=== PATIENT | female | born 1955 | race Caucasian/White ===

== ENCOUNTER 2021-11-28 20:36 | Outpatient (CLI) | payer MEDICARE, MEDICAID | END 2021-11-28 23:59 | disposition critical access hospital (66) | LOC: EMS 20:36 | DX: R06.02 Shortness of breath (principal); R06.2 Wheezing | CPT/HCPCS: A0425; A0427 ==

== ENCOUNTER 2021-11-28 20:55 | Inpatient (IN) | payer MEDICARE, MEDICAID ==
[2021-11-28] MEDS ORDERED: IPRATROPIUM/ALBUTEROL 3 ML NEB INH STA (21:02)
[2021-11-28] MEDS ORDERED: ALBUTEROL NEB 2.5 MG/3 ML INH STA ×2 (21:03→22:15)
[2021-11-28 21:13] LABS: BASOPHILS % (AUTO) 0.4 %; HCT - HEMATOCRIT 47.6 % (37.0-47.0); HGB - HEMOGLOBIN 15.3 g/dL (12.0-16.0); LYMPHOCYTES # (AUTO) 1.7 10^3/uL (1.5-3.5); LYMPHOCYTES % (AUTO) 16.3 %; MEAN CORPUSCULAR HEMOGLOBIN 29.9 pg (27.0-31.0); MEAN CORPUSCULAR HGB CONC 32.1 g/dL (32.0-36.0); MEAN CORPUSCULAR VOLUME 93.2 fL (81.0-99.0); MEAN PLATELET VOLUME 9.8 fL (7.9-10.8); MONOCYTES # (AUTO) 1.4 10^3/uL (0.0-1.0); MONOCYTES % (AUTO) 13.4 %; NEUTROPHILS % (AUTO) 69.6 %; PLT - PLATELET COUNT 226 10^3/uL (130-450); RED BLOOD COUNT 5.11 10^6/uL (4.20-5.40); RED CELL DISTRIBUTION WIDTH 14.3 % (12.0-15.0); WHITE BLOOD COUNT 10.1 x10^3/uL (4.8-10.8)
[2021-11-28 21:28] LABS: ALBUMIN/GLOBULIN RATIO 1.3 (1.0-2.2); BILIRUBIN,TOTAL 0.9 mg/dL (0.2-1.0); CALCIUM 8.7 mg/dL (8.5-10.3); CREATININE 0.6 mg/dL (0.4-1.0); POTASSIUM 3.6 mmol/L (3.5-5.0)
--- NOTE | 2021-11-28 21:36 | ED Physician Documentation ---
PD HPI DYSPNEA - Stated complaint Stated Complaint: SOA - Chief complaint Chief Complaint: Resp - History obtained from History obtained from: Patient - Additional information Additional information: Patient is a 66-year-old female with a history of COPD with shortness of breath since Saturday. Patient recently moved to a new house and when she turned on the heat of there was a lot of dust. She has been having more trouble breathing since being in the new home.She has a home nebulizer which she has been using without any improvement. Her breathing became worse tonight and she activated EMS. On upon EMS arrival, her room air oxygen saturations were 90%. She received 1 DuoNeb and 125 mg of IV Solu-Medrol.Patient reports having a chronic cough with no significant change in sputum production or color. She reports the sputum is clear with no blood. She does report having midsternal chest pain That feels like a tightness since Saturday which does not radiate, Worsens with cough.She denies fever, abdominal pain, vomiting or diarrhea, leg swelling. She has reported increased urination. Review of Systems Constitutional: denies: Fever Nose: denies: Congestion Cardiac: reports: Chest pain / pressure. denies: Palpitations Respiratory: reports: Dyspnea, Cough GI: denies: Abdominal Pain, Nausea, Vomiting : reports: Frequency. denies: Dysuria Musculoskeletal: denies: Back pain Neurologic: denies: Syncope PD PAST MEDICAL HISTORY - Past Medical History Past Medical History: Yes Respiratory: COPD - Past Surgical History Past Surgical History: Yes General: Appendectomy /[employer]LE [employer]RAKE [employer]ONDER: Hysterectomy - Present Medications Home Medications: Ambulatory Orders Medication Instructions Recorded Confirmed Albuterol Sulf [Ventolin Hfa 2 puffs INH PRN PRN 11/28/21 11/28/21 Inhaler] - Allergies Allergies/Adverse Reactions: Allergies Allergy/AdvReac Type Severity Reaction Status Date / Time No Known Drug Allergies Allergy Verified 11/28/21 21:02 - Social History Does the pt smoke?: Yes Smoking Status: Current every day smoker Does the pt drink ETOH?: No Does the pt have substance abuse?: No - Immunizations Immunizations are current?: No PD ED PE NORMAL - General General: Alert and oriented X 3, No acute distress, Well developed/nourished - HEENT HEENT: Atraumatic, Moist mucous membranes - Neck Neck: Supple, no meningeal sign - Cardiac Cardiac: No murmur, Strong equal pulses, Other (Tachycardic, regular rhythm) - Respiratory Respiratory: Other. No: No respiratory distress, Clear bilaterally (Mild tachypnea, diffuse wheezing) - Abdomen Abdomen: Normal bowel sounds, Soft, Non tender - Derm Derm: No rash - Extremities Extremities: No edema - Neuro Neuro: No motor deficit, Normal speech - Psych Psych: Normal mood Results - Vitals Vitals: Vital Signs - 24 hr 11/28/21 11/28/21 11/28/21 21:02 21:39 22:04 Temperature 36.7 C Heart Rate 113 H 110 H 110 H Respiratory 34 H 30 H 22 Rate Blood Pressure 156/85 H 156/71 H O2 Saturation 90 L 92 11/28/21 11/28/21 11/28/21 22:16 22:17 22:22 Temperature Heart Rate 106 H Respiratory 26 H 25 H 24 Rate Blood Pressure O2 Saturation 83 L 91 L Oxygen O2 Source Nasal cannula - EKG (time done) 2115 Rate: Rate (enter#) (106) Rhythm: Sinus tachycardia Ischemia: No: ST elevation c/w ischemia Compare to prior EKG: Old EKG unavailable - Labs Labs: Laboratory Tests 11/28/21 11/28/21 11/28/21 21:07 21:07 21:07 WBC 10.1 RBC 5.11 Hgb 15.3 Hct 47.6 H MCV 93.2 MCH 29.9 MCHC 32.1 RDW 14.3 Plt Count 226 MPV 9.8 Neut # (Auto) 7.0 H Lymph # (Auto) 1.7 Park # (Auto) 1.4 H Eos # (Auto) 0.0 Baso # (Auto) 0.0 Absolute Nucleated RBC 0.00 Nucleated RBC % 0.0 Sodium 136 Potassium 3.6 Chloride 102 Carbon Dioxide 25 Anion Gap 9.0 BUN 7 Creatinine 0.6 Estimated GFR (MDRD) 99 Glucose 121 H Calcium 8.7 Total Bilirubin 0.9 AST 21 ALT 24 Alkaline Phosphatase 78 Troponin I High Sens 9.2 B-Natriuretic Peptide Total Protein 7.0 Albumin 4.0 Globulin 3.0 Albumin/Globulin Ratio 1.3 Urine Color Urine Clarity Urine pH Ur Specific [place] Urine Protein Urine Glucose (UA) Urine Ketones Urine Occult Blood Urine Nitrite Urine Bilirubin Urine Urobilinogen Ur Leukocyte Esterase Ur Microscopic Review Urine Culture Comments SARS-CoV-2 (PCR) 11/28/21 11/28/21 11/28/21 21:07 21:19 21:54 WBC RBC Hgb Hct MCV MCH MCHC RDW Plt Count MPV Neut # (Auto) Lymph # (Auto) [place] # (Auto) Eos # (Auto) Baso # (Auto) Absolute Nucleated RBC Nucleated RBC % Sodium Potassium Chloride Carbon Dioxide Anion Gap BUN Creatinine Estimated GFR (MDRD) Glucose Calcium Total Bilirubin AST ALT Alkaline Phosphatase Troponin I High Sens B-Natriuretic Peptide 41 Total Protein Albumin Globulin Albumin/Globulin Ratio Urine Color DARK YELLOW Urine Clarity CLEAR Urine pH 5.5 Ur Specific [place] >=1.030 H Urine Protein TRACE Urine Glucose (UA) NEGATIVE Urine Ketones 40 H Urine Occult Blood TRACE-INTA Urine Nitrite NEGATIVE Urine Bilirubin NEGATIVE Urine Urobilinogen 0.2 (NORMAL) Ur Leukocyte Esterase NEGATIVE Ur Microscopic Review NOT INDICATED Urine Culture Comments NOT INDICATED SARS-CoV-2 (PCR) NOT DETECTED PD MEDICAL DECISION MAKING - ED course Complexity details: reviewed results, d/w patient ED course: Patient is a 66-year-old female presenting for evaluation of shortness of breath. Wheezing on exam. Has a history of COPD. Patient received multiple breathing treatments. IV Solu-Medrol given prior to arrival.Patient did desat requiring supplemental oxygen.She did have some clinical improvement and did not require BiPAP or intubation. Labs reviewed without significant abnormalities and sinus rhythm noted on EKG. Chest x-ray did not show clear consolidation.Patient to be admitted for COPD exacerbation. No lower extremity swelling to suggest DVT orKnown risk factors for pulmonary embolism. - Critical Care Time(min): 31 Departure - Departure Disposition: 66 [facility] DC/Xfer Clinical Impression: COPD with exacerbation, Acute respiratory failure with hypoxia Condition: Serious Discharge Date/Time: 11/28/21 23:55
--- NOTE | 2021-11-28 21:55 | XRAY Report ---
PROCEDURE: Chest 1 View X-Ray INDICATIONS: SOB TECHNIQUE: One view of the chest was acquired. COMPARISON: None. FINDINGS: Surgical changes and devices: None. Lungs and pleura: No pleural effusions or pneumothorax. There is pulmonary vascular prominence sugge stive of pulmonary edema. Mediastinum: Mediastinal contours appear normal. Heart size is normal. Bones and chest wall: No suspicious bony lesions. Overlying soft tissues appear unremarkable. IMPRESSION: 1. Pulmonary vascular prominence suggestive of pulmonary edema. Reviewed by: Christiano Torrez MD on 11/28/2021 9:54 PM PDT Approved by: Christiano Torrez MD on 11/28/2021 9:54 PM PDT Station ID: [id number]
[2021-11-28 22:05] LABS: GLUCOSE, URINE (UA) NEGATIVE (NEGATIVE); KETONES,URINE (UA) 40 mg/dL (NEGATIVE); LEUKOCYTE ESTERASE, URINE NEGATIVE (NEGATIVE); NITRITE,URINE NEGATIVE (NEGATIVE); OCCULT BLOOD,URINE TRACE-INTA (NEGATIVE); PH,URINE 5.5 PH (5.0-7.5); PROTEIN,URINE TRACE mg/dL (NEGATIVE); UROBILINOGEN,URINE 0.2 (NORMAL) E.U./dL (NORMAL)
[2021-11-28 22:06] LABS: CLARITY,URINE CLEAR (CLEAR)
[2021-11-28 22:10] LABS: BILIRUBIN,URINE NEGATIVE (NEGATIVE); ICTOTEST,URINE NEGATIVE
[2021-11-28] MEDS ORDERED: SODIUM CHLORIDE FLUSH 0.9% 10 ML SYRINGE IVP PRN (23:16)
[2021-11-28] MEDS ORDERED: ACETAMINOPHEN 325 MG TABLET PO PRN (23:16)
[2021-11-28] MEDS ORDERED: ONDANSETRON 4 MG/2 ML VIAL IVP PRN (23:16)
[2021-11-28] MEDS ORDERED: LEVALBUTEROL 1.25 MG/3 ML NEB INH PRN (23:35)
[2021-11-28] MEDS ORDERED: AZITHROMYCIN 250 MG TABLET PO STA (23:39)
--- NOTE | 2021-11-28 23:41 | HISTORY & PHYSICAL EXAMINATION ---
Chief Complaint - Chief Complaint Chief Complaint: SOB History of Present Illness - Admitted From Admitted From:: ED - History Obtained From History obtained from: ED provider and the patient - History of Present Illness HPI Comment/Other: This is a 66-year-old white female with a history of COPD on home inhaler and is S/P appendectomy and hysterectomy. She otherwise has no other past medical history and takes no other medications. She recently moved alone into a house on [facility] and over the past 4 days, since turning on the heater, has noticed increased dust in the house which has made her short of breath and wheeze. She is also more short of breath with activity such as unpacking her boxes. She describes a chronic cough with some sputum production which has been unchanged. There has been no fever or chest pain. She is a smoker of 1/2 PPD, but has only smoked 1 to 3 cigarettes per day, over the past 4 days, due to SOB. Due to worsening severe shortness of breath today, she called an ambulance. Her O2 saturation was 90% on room air at the scene. She received an Albuterol nebulizer treatment and IV Solu-Medrol 125 mg was given en route. In the ED, she was found to have a white count of 10.1, a negative COVID test, and she got 3 separate nebulizer treatments and despite that has felt no better and on room air has desaturated to 83%. She has been started on 2 L of oxygen supplemental now. The ED provider reached out to the Hospitalist team to have her admitted for further management of a COPD exacerbation. We discussed her CODE STATUS and she wants to be a DNR and DNI. She says "it's all in her Will". History - Past Medical History Cardiovascular: reports: None Respiratory: reports: COPD Neuro: reports: None Endocrine/Autoimmune: reports: None GI: reports: None HOSPITAL CORPSMAN: reports: None : reports: None HEENT: reports: None Psych: reports: None Musculoskeletal: reports: None Derm: reports: None MRSA Hx?: No - Past Surgical History General: reports: Appendectomy /HOSPITAL CORPSMAN: reports: Hysterectomy - Family & Social History Family History: Mother: , Father: Family History Comment/Other: Colon cancer runs in the family. She has 1 brother and 1 sister who are healthy. One brother in a car accident. She is 3 children who are healthy. Living arrangement: At home Living Situation: Alone Social History Notes: She lives alone. She smokes half pack per day. She has quit in the past, but " makes her resume smoking". When asked about who's , she started to cry and said "it is a long story" and would not disclose any details. There is no alcohol abuse history or drug use history. 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 - Substance History Use: Uses substance without health or social issues: Tobacco Meds/Allgy - Home Medications Home Medications: Ambulatory Orders Medication Instructions Recorded Confirmed Albuterol Sulf [Ventolin Hfa 2 puffs INH PRN PRN 11/28/21 11/28/21 Inhaler] - Allergies Allergies/Adverse Reactions: Allergies Allergy/AdvReac Type Severity Reaction Status Date / Time No Known Drug Allergies Allergy Verified 11/28/21 21:02 Review of Systems - Respiratory Respiratory: reports: Cough, Sputum production, Wheezing, SOB at rest, SOB with exertion - Integumentary Integumentary: reports: Rash (occais redness under L breast, not currently) - All Other Systems All Other Systems: reports: Reviewed and negative Exam - Vital Signs Reviewed Vital Signs: Yes Vital Signs: Vital Signs x48h Temp Pulse Resp BP Pulse Ox 11/28/21 22:22 106 H 24 11/28/21 22:17 25 H 91 L 11/28/21 22:16 26 H 83 L 11/28/21 22:04 110 H 22 156/71 H 92 11/28/21 21:39 110 H 30 H 11/28/21 21:02 36.7 C 113 H 34 H 156/85 H 90 L - Physical Exam General Appearance: positive: Alert, Mild distress (Tachypneic) Eyes Bilateral: positive: Normal inspection, EOMI ENT: positive: ENT inspection nml, No signs of dehydration, Other (Deep, harsh voice.) Neck: positive: Nml inspection, No JVD (but has obese neck) Respiratory: positive: Other (Scattered wheezes, prolonged expiratory phase, diminished breath sounds everywhere.) Cardiovascular: positive: Regular rate & rhythm (Distant heart sounds because of large pendulous breasts.) Abdomen: positive: Non-tender, No distention Skin: positive: No rash, Warm, Dry Extremities: positive: Non-tender, No pedal edema Neurologic/Psychiatric: positive: Oriented x3 (Non-focal) Conclusion/Plan - Problem List (1) Acute respiratory failure with hypoxia Conclusion/Plan: Patient has desaturated below 88% on room air, documented in the ED. She has been started on supplemental oxygen at 2 L per nasal cannula. Will treat the underlying problem, her COPD exacerbation. Will try to wean down the oxygen as tolerated keeping saturations equal to or greater than 88%. She will need an oximetry walk test on the day of discharge to see if she qualifies for home oxygen order. (2) COPD with exacerbation Conclusion/Plan: It appears that the dust that was kicked up in the house from turning on the heater has caused this COPD exacerbation. From her CBC showing polycythemia, she likely has been a longstanding COPDer, but labs show no CO2 retention, or bicarb elevation. Her chest x-ray shows no infiltrate, in fact it was read as having possible pulmonary edema but her BNP is entirely within normal limits. Will continue the patient on nebulized bronchodilators and nebulized steroids. Continue IV solumedrol 80 mg 3 times daily. Give an empiric Zithromax course of treatment, and give Florastor. Start Singulair at bedtime. Start Mucinex for pulmonary toilet Continue with supplemental oxygen as described above. Smoking cessation was discussed with the patient. (3) Tobacco use Conclusion/Plan: Smoking cessation would be very helpful for this patient with COPD. Nicotine patch will be ordered to use while here to decrease urges. - Lab Results Lab results reviewed: Yes Fish Bones: 11/28/21 21:07 11/28/21 21:07 - Diagnostic Imaging Results Diagnostic Imaging Results: positive: Final report reviewed - EKG Results EKG Interpreted Independently: Yes EKG Comparison: Old EKG unavailable EKG Findings: Sinus tachycardia, rate 106, otherwise WNL. No old EKG available for [facility]. - Other Other Results/Comments: Attestation: The patient is expected to be discharged or transferred to another facility within 96 hours: Yes.
[2021-11-29] MEDS: BUDESONIDE 0.5 MG/2 ML NEB INH SCH ×3 (00:44→19:27)
[2021-11-29] MEDS: DEXTROSE 5%-0.9% NACL 1,000 ML IV SCH ×2 (00:48→16:55)
[2021-11-29] MEDS: MONTELUKAST 10 MG TABLET PO SCH ×2 (00:49→20:59)
[2021-11-29] MEDS: SODIUM CHLORIDE FLUSH 0.9% 10 ML SYRINGE IVP SCH ×4 (00:49→23:57)
[2021-11-29] MEDS ORDERED: methylPREDNISolone SUCCINATE 40 MG/ML VIAL IVP SCH (06:00)
[2021-11-29] MEDS: LEVALBUTEROL 1.25 MG/3 ML NEB INH SCH ×4 (07:14→19:28)
[2021-11-29] MEDS: SACCHAROMYCES BOULARDII 250 MG CAPSULE PO SCH ×2 (07:42→17:10)
[2021-11-29 07:45] LABS: BASOPHILS % (AUTO) 0.2 %; HCT - HEMATOCRIT 45.6 % (37.0-47.0); HGB - HEMOGLOBIN 14.8 g/dL (12.0-16.0); LYMPHOCYTES # (AUTO) 0.8 10^3/uL (1.5-3.5); LYMPHOCYTES % (AUTO) 13.5 %; MEAN CORPUSCULAR HEMOGLOBIN 30.5 pg (27.0-31.0); MEAN CORPUSCULAR HGB CONC 32.5 g/dL (32.0-36.0); MEAN CORPUSCULAR VOLUME 93.8 fL (81.0-99.0); MEAN PLATELET VOLUME 9.8 fL (7.9-10.8); MONOCYTES # (AUTO) 0.2 10^3/uL (0.0-1.0); MONOCYTES % (AUTO) 2.6 %; NEUTROPHILS # (AUTO) 5.1 10^3/uL (1.5-6.6); NEUTROPHILS % (AUTO) 83.5 %; PLT - PLATELET COUNT 219 10^3/uL (130-450); RED BLOOD COUNT 4.86 10^6/uL (4.20-5.40); RED CELL DISTRIBUTION WIDTH 14.4 % (12.0-15.0); WHITE BLOOD COUNT 6.1 x10^3/uL (4.8-10.8)
[2021-11-29 07:59] LABS: CALCIUM 8.7 mg/dL (8.5-10.3); CREATININE 0.6 mg/dL (0.4-1.0)
[2021-11-29] MEDS: AZITHROMYCIN 250 MG TABLET PO SCH (08:29)
[2021-11-29] MEDS: NICOTINE 14 MG PATCH TOP SCH (08:29)
[2021-11-29] MEDS: guaiFENesin 600 MG TABLET PO SCH ×2 (08:29→20:59)
[2021-11-29] MEDS: ENOXAPARIN 40 MG/0.4 ML SYRINGE SUBQ SCH (08:29)
[2021-11-29] MEDS ORDERED: LORazepam 0.5 MG TABLET PO PRN (10:07)
--- NOTE | 2021-11-29 10:25 | PROVIDER PROGRESS NOTE ---
Assessment/Plan - Problem List (1) Acute respiratory failure with hypoxia Assessment/Plan: 11/29 pt still need 4 liter of O2 and has 96% Sats. which is likely caused by pt's COPD exacerbation and ongoing smoking. continue Solu-metrol, continue breathing INH treatment, continue supplement of O2 as needed. (2) COPD with exacerbation 11/29 we continue the patient on nebulized bronchodilators and nebulized steroids. , Continue IV solumedrol 80 mg 3 times daily. continue an empiric Zithromax course of treatment, and give Florastor. continue Mucinex for pulmonary toilet Continue with supplemental oxygen as described above. (3) Tobacco use we will discuss with pt, Smoking cessation would be very helpful for this patient with COPD, Nicotine patch will be ordered to use while here to decrease urges. - Current Meds Current Meds: Current Medications Generic Name Dose Route Start Last Admin Trade Name Freq PRN Reason Stop Dose Admin Azithromycin 250 mg 11/29/21 09:00 11/29/21 08:29 Azithromycin 250 Mg Tablet PO 12/03/21 00:01 250 mg DAILY LUKASZ Administration Budesonide 0.5 mg 11/28/21 23:34 11/29/21 07:13 Budesonide 0.5 Mg/2 Ml Neb INH 0.5 mg RTBID LUKASZ Administration Enoxaparin Sodium 40 mg 11/29/21 09:00 11/29/21 08:29 Enoxaparin 40 Mg/0.4 Ml Syringe SUBQ 40 mg DAILY LUKASZ Administration Guaifenesin 600 mg 11/29/21 09:00 11/29/21 08:29 Guaifenesin 600 Mg Tablet PO 600 mg BID LUKASZ Administration Dextrose/Sodium Chloride 1,000 mls @ 60 mls/hr 11/28/21 23:45 11/29/21 00:48 D5ns IV 60 mls/hr .[id number] LUKASZ Administration Levalbuterol HCl 1.25 mg 11/29/21 09:00 11/29/21 07:14 Levalbuterol 1.25 Mg/3 Ml Neb INH 1.25 mg QID LUKASZ Administration Montelukast Sodium 10 mg 11/28/21 23:37 11/29/21 00:49 Montelukast 10 Mg Tablet PO 10 mg QPM LUKASZ Administration Nicotine 1 patch 11/29/21 09:00 11/29/21 08:29 Nicotine 14 Mg Patch TOP 1 patch DAILY LUKASZ Administration Saccharomyces Boulardii 250 mg 11/29/21 08:00 11/29/21 07:42 Saccharomyces Boulardii 250 Mg Capsule PO 250 mg BIDWM LUKASZ Administration Sodium Chloride 10 ml 11/29/21 01:00 11/29/21 06:15 Sodium Chloride Flush 0.9% 10 Ml Syringe IVP 10 ml 0100,0900,1700 LUKASZ Administration - Lab Result Fish Bone Diagrams: 11/29/21 07:40 11/29/21 07:40 - Additional Planning My Orders: My Active Orders 11/29/21 07:33 Ipratropium [Atrovent] 0.5 mg INH RTQ6H 11/29/21 07:34 Nebulizer/MDI Tx. [RC] QID Resp Teach Nebulizer/MDI [RC] .ONCE 11/29/21 10:07 LORazepam [Ativan] 0.5 mg PO Q12H PRN 11/30/21 05:00 BMP - BASIC METABOLIC PANEL [CHEM] DAILYLAB CBC - COMP BLD CT W/AUTO DIFF [HEME] DAILYLAB 12/01/21 05:00 BMP - BASIC METABOLIC PANEL [CHEM] DAILYLAB CBC - COMP BLD CT W/AUTO DIFF [HEME] DAILYLAB 12/02/21 05:00 BMP - BASIC METABOLIC PANEL [CHEM] DAILYLAB CBC - COMP BLD CT W/AUTO DIFF [HEME] DAILYLAB 12/03/21 05:00 BMP - BASIC METABOLIC PANEL [CHEM] DAILYLAB CBC - COMP BLD CT W/AUTO DIFF [HEME] DAILYLAB 12/04/21 05:00 BMP - BASIC METABOLIC PANEL [CHEM] DAILYLAB CBC - COMP BLD CT W/AUTO DIFF [HEME] DAILYLAB Subjective - Subjective Patient Reports: Resting Comfortably Objective Vital Signs: Vital Signs - 24 hr 11/28/21 11/28/21 11/28/21 21:02 21:39 22:04 Temperature 36.7 C Heart Rate 113 H 110 H 110 H Heart Rate [ Brachial] Respiratory 34 H 30 H 22 Rate Blood Pressure 156/85 H 156/71 H Blood Pressure [Right Brachial artery] O2 Saturation 90 L 92 11/28/21 11/28/21 11/28/21 22:16 22:17 22:22 Temperature Heart Rate 106 H Heart Rate [ Brachial] Respiratory 26 H 25 H 24 Rate Blood Pressure Blood Pressure [Right Brachial artery] O2 Saturation 83 L 91 L 11/29/21 11/29/21 11/29/21 00:05 00:40 04:55 Temperature 37.3 C 37 C Heart Rate 76 Heart Rate [ 76 81 Brachial] Respiratory 28 H 22 24 Rate Blood Pressure Blood Pressure 120/99 H 109/46 L [Right Brachial artery] O2 Saturation 94 96 11/29/21 11/29/21 07:15 07:50 Temperature 37 C Heart Rate 78 Heart Rate [ 81 Brachial] Respiratory 20 24 Rate Blood Pressure Blood Pressure 115/52 L [Right Brachial artery] O2 Saturation 96 Oxygen O2 Source Nasal cannula I&O (Last 24 Hrs): Intake and Output Totals x24h 11/27/21 11/28/21 11/29/21 23:59 23:59 23:59 Intake Total 240 Output Total 30 Balance -30 240 General: Alert, Oriented x3, No acute distress HEENT: Atraumatic Neck: Supple Lymphatic: no adenopathy Neuro: Alert, Non Focal, Oriented Times 3 Cardiovascular: Regular rate, Normal S1, Normal S2 Respiratory: Chest non-tender, No respiratory distress Abdomen: Normal bowel sounds, Soft Extremities: Normal pulses - Results Results: Laboratory Results WBC 6.1 x10^3/uL (4.8-10.8) 11/29/21 07:40 RBC 4.86 10^6/uL (4.20-5.40) 11/29/21 07:40 Hgb 14.8 g/dL (12.0-16.0) 11/29/21 07:40 Hct 45.6 % (37.0-47.0) 11/29/21 07:40 MCV 93.8 fL (81.0-99.0) 11/29/21 07:40 MCH 30.5 pg (27.0-31.0) 11/29/21 07:40 MCHC 32.5 g/dL (32.0-36.0) 11/29/21 07:40 RDW 14.4 % (12.0-15.0) 11/29/21 07:40 Plt Count 219 10^3/uL (130-450) 11/29/21 07:40 MPV 9.8 fL (7.9-10.8) 11/29/21 07:40 Neut # (Auto) 5.1 10^3/uL (1.5-6.6) 11/29/21 07:40 Lymph # (Auto) 0.8 10^3/uL (1.5-3.5) L 11/29/21 07:40 [place] # (Auto) 0.2 10^3/uL (0.0-1.0) 11/29/21 07:40 Eos # (Auto) 0.0 10^3/uL (0.0-0.7) 11/29/21 07:40 Baso # (Auto) 0.0 10^3/uL (0.0-0.1) 11/29/21 07:40 Absolute Nucleated RBC 0.00 x10^3/uL 11/29/21 07:40 Nucleated RBC % 0.0 /100WBC 11/29/21 07:40 Sodium 135 mmol/L (135-145) 11/29/21 07:40 Potassium 4.0 mmol/L (3.5-5.0) 11/29/21 07:40 Chloride 102 mmol/L (101-111) 11/29/21 07:40 Carbon Dioxide 24 mmol/L (21-32) 11/29/21 07:40 Anion Gap 9.0 (6-13) 11/29/21 07:40 BUN 10 mg/dL (6-20) 11/29/21 07:40 Creatinine 0.6 mg/dL (0.4-1.0) 11/29/21 07:40 Estimated GFR (MDRD) 99 (>89) 11/29/21 07:40 Glucose 179 mg/dL (70-100) H 11/29/21 07:40 Calcium 8.7 mg/dL (8.5-10.3) 11/29/21 07:40 Total Bilirubin 0.9 mg/dL (0.2-1.0) 11/28/21 21:07 AST 21 IU/L (10-42) 11/28/21 21:07 ALT 24 IU/L (10-60) 11/28/21 21:07 Alkaline Phosphatase 78 IU/L (42-121) 11/28/21 21:07 Troponin I High Sens 9.2 ng/L (2.3-14.8) 11/28/21 21:07 B-Natriuretic Peptide 41 pg/mL (5-100) 11/28/21 21:07 Total Protein 7.0 g/dL (6.7-8.2) 11/28/21 21:07 Albumin 4.0 g/dL (3.2-5.5) 11/28/21 21:07 Globulin 3.0 g/dL (2.1-4.2) 11/28/21 21:07 Albumin/Globulin Ratio 1.3 (1.0-2.2) 11/28/21 21:07 Urine Color DARK YELLOW 11/28/21 21:54 Urine Clarity CLEAR (CLEAR) 11/28/21 21:54 Urine pH 5.5 PH (5.0-7.5) 11/28/21 21:54 Ur Specific [place] >=1.030 (1.002-1.030) H 11/28/21 21:54 Urine Protein TRACE mg/dL (NEGATIVE) 11/28/21 21:54 Urine Glucose (UA) NEGATIVE mg/dL (NEGATIVE) 11/28/21 21:54 Urine Ketones 40 mg/dL (NEGATIVE) H 11/28/21 21:54 Urine Occult Blood TRACE-INTA (NEGATIVE) 11/28/21 21:54 Urine Nitrite NEGATIVE (NEGATIVE) 11/28/21 21:54 Urine Bilirubin NEGATIVE (NEGATIVE) 11/28/21 21:54 Urine Urobilinogen 0.2 (NORMAL) E.U./dL (NORMAL) 11/28/21 21:54 Ur Leukocyte Esterase NEGATIVE (NEGATIVE) 11/28/21 21:54 Ur Microscopic Review NOT INDICATED 11/28/21 21:54 Urine Culture Comments NOT INDICATED 11/28/21 21:54 SARS-CoV-2 (PCR) NOT DETECTED 11/28/21 21:19 ABX Reporting Has patient been on IV antibiotics over the past 48 hours?: Yes Current Medications - Current Medications Current Medications: Active Medications Acetaminophen (Acetaminophen 325 Mg Tablet) 650 mg PO Q4HR PRN PRN Reason: Pain 1 to 4, or Fever Azithromycin (Azithromycin 250 Mg Tablet) 250 mg PO DAILY LUKASZ Stop: 12/03/21 00:01 Last Admin: 11/29/21 08:29 Dose: 250 mg Budesonide (Budesonide 0.5 Mg/2 Ml Neb) 0.5 mg INH RTBID LUKASZ Last Admin: 11/29/21 07:13 Dose: 0.5 mg Enoxaparin Sodium (Enoxaparin 40 Mg/0.4 Ml Syringe) 40 mg SUBQ DAILY [facility] Last Admin: 11/29/21 08:29 Dose: 40 mg Guaifenesin (Guaifenesin 600 Mg Tablet) 600 mg PO BID [facility] Last Admin: 11/29/21 08:29 Dose: 600 mg Dextrose/Sodium Chloride (D5ns) 1,000 mls @ 60 mls/hr IV .[id number] [facility] Last Admin: 11/29/21 00:48 Dose: 60 mls/hr Ipratropium Mcpherson (Ipratropium 0.2 Mg/Ml Neb) 0.5 mg INH RTQ6H [facility] Levalbuterol HCl (Levalbuterol 1.25 Mg/3 Ml Neb) 1.25 mg INH Q4H PRN PRN Reason: Shortness of Air/Wheezing Levalbuterol HCl (Levalbuterol 1.25 Mg/3 Ml Neb) 1.25 mg INH QID [facility] Last Admin: 11/29/21 07:14 Dose: 1.25 mg Lorazepam (Lorazepam 0.5 Mg Tablet) 0.5 mg PO Q12H PRN PRN Reason: Anxiety Methylprednisolone Sodium Succinate (Methylprednisolone Succinate 125 Mg/2 Ml Vial) 80 mg IVP TID [facility] Montelukast Sodium (Montelukast 10 Mg Tablet) 10 mg PO QPM [facility] Last Admin: 11/29/21 00:49 Dose: 10 mg Nicotine (Nicotine 14 Mg Patch) 1 patch TOP DAILY [facility] Last Admin: 11/29/21 08:29 Dose: 1 patch Ondansetron HCl (Ondansetron 4 Mg/2 Ml Vial) 4 mg IVP Q6HR PRN PRN Reason: Nausea / Vomiting Saccharomyces Boulardii (Saccharomyces Boulardii 250 Mg Capsule) 250 mg PO BIDWM [facility] Last Admin: 11/29/21 07:42 Dose: 250 mg Sodium Chloride (Sodium Chloride Flush 0.9% 10 Ml Syringe) 10 ml IVP PRN PRN PRN Reason: NEEDED PER PROVIDER ORDERS Sodium Chloride (Sodium Chloride Flush 0.9% 10 Ml Syringe) 10 ml IVP 0100,0900,1700 [facility] Last Admin: 11/29/21 06:15 Dose: 10 ml Albuterol Sulf [Ventolin Hfa Inhaler] 2 puffs INH PRN PRN 11/28/21
[2021-11-29] MEDS: IPRATROPIUM 0.2 MG/ML NEB INH SCH ×3 (11:49→19:27)
[2021-11-29] MEDS: methylPREDNISolone SUCCINATE 125 MG/2 ML VIAL IVP SCH ×2 (13:39→20:59)
[2021-11-30 05:51] LABS: BASOPHILS % (AUTO) 0.1 %; HGB - HEMOGLOBIN 13.7 g/dL (12.0-16.0); LYMPHOCYTES # (AUTO) 1.3 10^3/uL (1.5-3.5); LYMPHOCYTES % (AUTO) 7.9 %; MEAN CORPUSCULAR HGB CONC 31.9 g/dL (32.0-36.0); MEAN CORPUSCULAR VOLUME 94.3 fL (81.0-99.0); MEAN PLATELET VOLUME 10.5 fL (7.9-10.8); MONOCYTES # (AUTO) 0.6 10^3/uL (0.0-1.0); MONOCYTES % (AUTO) 3.7 %; NEUTROPHILS # (AUTO) 14.1 10^3/uL (1.5-6.6); NEUTROPHILS % (AUTO) 87.6 %; PLT - PLATELET COUNT 215 10^3/uL (130-450); RED BLOOD COUNT 4.56 10^6/uL (4.20-5.40); RED CELL DISTRIBUTION WIDTH 14.7 % (12.0-15.0)
[2021-11-30] MEDS: methylPREDNISolone SUCCINATE 125 MG/2 ML VIAL IVP SCH (05:57)
[2021-11-30 05:58] LABS: CALCIUM 8.7 mg/dL (8.5-10.3); CREATININE 0.6 mg/dL (0.4-1.0); POTASSIUM 4.5 mmol/L (3.5-5.0)
[2021-11-30] MEDS: IPRATROPIUM 0.2 MG/ML NEB INH SCH ×2 (05:58→07:41)
[2021-11-30] MEDS: SACCHAROMYCES BOULARDII 250 MG CAPSULE PO SCH (07:32)
[2021-11-30] MEDS: BUDESONIDE 0.5 MG/2 ML NEB INH SCH (07:38)
[2021-11-30] MEDS: LEVALBUTEROL 1.25 MG/3 ML NEB INH SCH ×2 (07:41→11:22)
[2021-11-30] MEDS: NICOTINE 14 MG PATCH TOP SCH (08:08)
[2021-11-30] MEDS: guaiFENesin 600 MG TABLET PO SCH (08:09)
[2021-11-30] MEDS: AZITHROMYCIN 250 MG TABLET PO SCH (08:09)
[2021-11-30] MEDS: SODIUM CHLORIDE FLUSH 0.9% 10 ML SYRINGE IVP SCH (08:09)
[2021-11-30] MEDS: ENOXAPARIN 40 MG/0.4 ML SYRINGE SUBQ SCH (08:09)
[2021-11-30] MEDS: DEXTROSE 5%-0.9% NACL 1,000 ML IV SCH (08:11)
[2021-11-30] MEDS ORDERED: IPRATROPIUM 0.2 MG/ML NEB INH SCH (09:00)
--- NOTE | 2021-11-30 10:49 | PHARMACY PROGRESS NOTE ---
- Best Possible Medication History Admit Date and Time: 11/28/21 1850 Processed by: Nursing Medication History completed: Yes Patient Interview: Completed As the person ultimately responsible for medication therapy, providers are able to order a medication from an existing home medication list in [facility] via the "Reconcile Routine" prior to Confirmation of that medication by windows desktop support. Such practice is discouraged except when the physician, in their clinical judg ment, deems that a medical need exists for a medication without regard to previous use.
[2021-11-30 11:02] VITALS: BP 125/56
--- NOTE | 2021-11-30 12:54 | Discharge Plan ---
Discharge Plan Problem Reviewed?: Yes Disposition: Home, Self Care Condition: Stable Prescriptions: Ipratropium [Atrovent] 1 puffs INH Q6H PRN #12.9 gm PRN Reason: Shortness Of Air/Wheezing predniSONE [Deltasone] 20 mg PO [id number] 5 Days #11 tab Azithromycin [Zithromax] 250 mg PO DAILY #4 tablet Diet: Regular Activity Restrictions: Activity as Tolerated Shower Restrictions: No (fall precaution ) Instruction Topics: COPD, COPD Inhalers, Prednisone tablets, Azithromycin tablets Health Concerns: COPD Plan of Treatment: After you were treated for your COPD, you have no respiratory distress. You are prescribed new Atrovent Inhaler, and taper down Prednisone, and four days of azithromycin. You may resume your home Albuterol inhaler as needed. Strongly advised that you may quit cigarette smoking. Care Goals: Stabilization and improvement of your medical conditions Assessment: Discussed the care plan with you, answered your questions, you understood Additional Instructions or Follow Up instructions: You may follow-up with your PCP In 1 to 2 weeks. should your symptoms return or worsen, You may present to the ER or call 911 for help. No Smoking: If you smoke, Please STOP! Call for help.
--- NOTE | 2021-11-30 13:04 | DISCHARGE SUMMARY ---
Discharge Summary Admit Date: 11/28/21 Discharge Date: 11/30/21 Discharging Provider: Christiano Lucas Condition at Discharge: Stable Discharge Disposition: 01 Home, Self Care Discharge Facility Name: home - DIAGNOSES Discharge Diagnoses with Status of Each Condition: (1) Acute respiratory failure with hypoxia resolved. pt has 93% sat on room air, she has no acute respiratory distress with comfortable breathing (2) COPD with exacerbation pt's acute exacerbation is resolved. pt has 93% sat on room air. pt is prescribed taper down dosage of Prednisone, and Atrovent inhaler, four days of Azithromycin. Pt may resume home albuterol inhaler. (3) Tobacco use strongly advise pt quit cigarette smoking. - HPI History of Present Illness: refer from Dr. Shayy Stafford's HPI on 11/28/21 This is a 66-year-old white female with a history of COPD on home inhaler and is S/P appendectomy and hysterectomy. She otherwise has no other past medical history and takes no other medications. She recently moved alone into a house on [address] and over the past 4 days, since turning on the heater, has noticed increased dust in the house which has made her short of breath and wheez e. She is also more short of breath with activity such as unpacking her boxes. She describes a chronic cough with some sputum production which has been unchanged. There has been no fever or chest pain. She is a smoker of 1/2 PPD, but has only smoked 1 to 3 cigarettes per day, over the past 4 days, due to SOB. Due to worsening severe shortness of breath today, she called an ambulance. Her O2 saturation was 90% on room air at the scene. She received an Albuterol nebulizer treatment and IV Solu-Medrol 125 mg was given en route. In the ED, she was found to have a white count of 10.1, a negative COVID test, and she got 3 separate nebulizer treatments and despite that has felt no better and on room air has desaturated to 83%. She has been started on 2 L of oxygen supplemental now. The ED provider reached out to the Hospitalist team to have her admitted for further management of a COPD exacerbation. We discussed her CODE STATUS and she wants to be a DNR and DNI. She says "it's all in her Will". - ALLERGIES Allergies/Adverse Reactions: Allergies Allergy/AdvReac Type Severity Reaction Status Date / Time No Known Drug Allergies Allergy Verified 11/28/21 21:02 - MEDICATIONS Home Medications: Ambulatory Orders Medication Instructions Recorded Confirmed Albuterol Sulf [Ventolin Hfa 2 puffs INH PRN PRN 11/28/21 11/28/21 Inhaler] Azithromycin [Zithromax] 250 mg PO DAILY #4 tablet 11/30/21 Ipratropium [Atrovent] 1 puffs INH Q6H PRN #12.9 gm 11/30/21 predniSONE [Deltasone] 20 mg PO [id number] 5 Days #11 tab 11/30/21 - PHYSICAL EXAM AT DISCHARGE General Appearance: positive: No acute distress, Alert. negative: Lethargic Eyes Bilateral: positive: Normal inspection, No lid inflammation ENT: positive: ENT inspection nml, No signs of dehydration. negative: Purulent nasal drainage Neck: positive: Nml inspection, Trachea midline. negative: Tracheal deviation Respiratory: positive: Chest non-tender, No respiratory distress. negative: Wheezes Cardiovascular: positive: Regular rate & rhythm. negative: Tachycardia, Bradycardia, Systolic murmur Peripheral Pulses: positive: 2+ Abdomen: positive: Non-tender, Nml bowel sounds, No distention. negative: Tend erness Back: positive: Nml inspection Skin: positive: Color nml, Warm, Dry. negative: Cyanosis Extremities: positive: Non-tender, Full ROM, Nml appearance Neurologic/Psychiatric: positive: Oriented x3, Motor nml, Sensation nml. negative: Weakness, Sensory loss, Facial droop, Slurred/abnml speech, Depressed mood/affect - LABS Result Diagrams: 11/30/21 04:58 11/30/21 04:58 - FOLLOW UP Follow Up: After you were treated for your COPD, you have no respiratory distress. You are prescribed new Atrovent Inhaler, and taper down Prednisone, and four days of azithromycin. You may resume your home Albuterol inhaler as needed. Strongly advised that you may quit cigarette smoking. You may follow-up with your PCP In 1 to 2 weeks. should your symptoms return or worsen, You may present to the ER or call 911 for help. - TIME SPENT Time Spent in Discharge (Minutes): 30
[2021-11-30] MEDS ORDERED: methylPREDNISolone SUCCINATE 125 MG/2 ML VIAL IVP SCH (14:00)
== END 2021-11-30 16:00 | disposition home or self-care (01) | DRG 189 ==
LOC: ED 20:55 → MS2 23:16
PROVIDERS: ADMIT Internal Medicine; ATTEND Nurse Practitioner Gerontology
DX: J96.01 Acute respiratory failure with hypoxia (principal); J44.1 Chronic obstructive pulmonary disease with (acute) exacerbation; Z20.822 Contact with and (suspected) exposure to COVID-19; F17.200 Nicotine dependence, unspecified, uncomplicated; F17.210 Nicotine dependence, cigarettes, uncomplicated; Z66 Do not resuscitate
CPT/HCPCS: 36415; 71045; 80048; 80053; 81003; 83880; 84484; 85025; 87635; 93005; 94640; 94664; 99285; 99291; A9270; J1650; J7626; 81001; 87086

== ENCOUNTER 2022-04-20 08:00 | Outpatient (CLI) | payer MEDICARE, MEDICAID ==
[2022-04-20 18:25] LABS: BASOPHILS % (AUTO) 0.4 %; EOSINOPHILS # (AUTO) 0.1 10^3/uL (0.0-0.7); EOSINOPHILS % (AUTO) 0.7 %; HCT - HEMATOCRIT 48.7 % (37.0-47.0); HGB - HEMOGLOBIN 15.6 g/dL (12.0-16.0); LYMPHOCYTES # (AUTO) 2.5 10^3/uL (1.5-3.5); LYMPHOCYTES % (AUTO) 23.2 %; MEAN CORPUSCULAR HEMOGLOBIN 31.4 pg (27.0-31.0); MEAN PLATELET VOLUME 10.1 fL (7.9-10.8); MONOCYTES # (AUTO) 1.1 10^3/uL (0.0-1.0); MONOCYTES % (AUTO) 9.9 %; NEUTROPHILS % (AUTO) 65.6 %; PLT - PLATELET COUNT 309 10^3/uL (130-450); RED BLOOD COUNT 4.97 10^6/uL (4.20-5.40); RED CELL DISTRIBUTION WIDTH 15.2 % (12.0-15.0); WHITE BLOOD COUNT 10.6 x10^3/uL (4.8-10.8)
[2022-04-20 18:31] LABS: ALBUMIN 3.9 g/dL (3.2-5.5); ALBUMIN/GLOBULIN RATIO 1.2 (1.0-2.2); BILIRUBIN,TOTAL 0.8 mg/dL (0.2-1.0); CALCIUM 9.5 mg/dL (8.5-10.3); CREATININE 0.6 mg/dL (0.4-1.0); POTASSIUM 4.4 mmol/L (3.5-5.0); TOTAL PROTEIN 7.1 g/dL (6.7-8.2)
== END 2022-04-20 23:59 | disposition home or self-care (01) ==
LOC: LAB.N 08:00
PROVIDERS: ATTEND Nurse Practitioner
DX: R10.9 Unspecified abdominal pain (principal)
CPT/HCPCS: 36415; 80053; 82150; 83690; 85025

== ENCOUNTER 2022-11-12 10:43 | Emergency (ER) | payer MEDICARE, MEDICAID ==
[2022-11-12 11:28] LABS: BILIRUBIN,URINE NEGATIVE (NEGATIVE); GLUCOSE, URINE (UA) NEGATIVE (NEGATIVE); KETONES,URINE (UA) NEGATIVE (NEGATIVE); LEUKOCYTE ESTERASE, URINE NEGATIVE (NEGATIVE); NITRITE,URINE NEGATIVE (NEGATIVE); OCCULT BLOOD,URINE TRACE-INTA (NEGATIVE); PH,URINE 5.5 PH (5.0-7.5); PROTEIN,URINE NEGATIVE (NEGATIVE); UROBILINOGEN,URINE 0.2 (NORMAL) E.U./dL (NORMAL)
[2022-11-12 11:29] LABS: CLARITY,URINE CLEAR (CLEAR)
[2022-11-12 11:33] LABS: BASOPHILS # (AUTO) 0.1 10^3/uL (0.0-0.1); BASOPHILS % (AUTO) 0.6 %; EOSINOPHILS # (AUTO) 0.1 10^3/uL (0.0-0.7); EOSINOPHILS % (AUTO) 0.6 %; HCT - HEMATOCRIT 49.3 % (37.0-47.0); HGB - HEMOGLOBIN 16.2 g/dL (12.0-16.0); LYMPHOCYTES # (AUTO) 2.4 10^3/uL (1.5-3.5); LYMPHOCYTES % (AUTO) 22.5 %; MEAN CORPUSCULAR HEMOGLOBIN 32.3 pg (27.0-31.0); MEAN CORPUSCULAR HGB CONC 32.9 g/dL (32.0-36.0); MEAN CORPUSCULAR VOLUME 98.2 fL (81.0-99.0); MEAN PLATELET VOLUME 9.4 fL (7.9-10.8); MONOCYTES # (AUTO) 0.8 10^3/uL (0.0-1.0); NEUTROPHILS # (AUTO) 7.4 10^3/uL (1.5-6.6); NEUTROPHILS % (AUTO) 69.1 %; PLT - PLATELET COUNT 305 10^3/uL (130-450); RED BLOOD COUNT 5.02 10^6/uL (4.20-5.40); RED CELL DISTRIBUTION WIDTH 13.8 % (12.0-15.0); WHITE BLOOD COUNT 10.7 x10^3/uL (4.8-10.8)
[2022-11-12] MEDS ORDERED: KETOROLAC 15 MG/ML VIAL IVP STA (11:37)
--- NOTE | 2022-11-12 11:37 | ED Physician Documentation ---
PD HPI ABD PAIN - Stated complaint Stated Complaint: LOWER ABD PX, NAUSEA - Chief complaint Chief Complaint: Abd Pain - History obtained from History obtained from: Patient - Additional information Additional information: 67-year-old woman with recurrent diverticulitis, last flare was about 3 years ago. She has a history of hysterectomy but no other abdominal surgeries. She had left lower quadrant pain sharp stabbing since yesterday. Associate with mild nausea. No fevers or chills. No changes in her bowel movements. It is reminiscent of prior diverticulitis. 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: Hysterectomy HEENT: Cataracts, Tonsil/Adenoidectomy - Present Medications Home Medications: Ambulatory Orders Medication Instructions Recorded Confirmed Albuterol Sulf [Ventolin Hfa 2 puffs INH PRN PRN 11/28/21 11/28/21 Inhaler] Azithromycin [Zithromax] 250 mg PO DAILY #4 tablet 11/30/21 Ipratropium [Atrovent] 1 puffs INH Q6H PRN #12.9 gm 11/30/21 predniSONE [Deltasone] 20 mg PO [id number] 5 Days #11 tab 11/30/21 Amox/Clav 875/125 [Augmentin] 1 each PO Q12H #20 tablet 11/12/22 HYDROcod/ACETAM 5/325 [[place] 5/325] 1 - 2 tab PO Q6H PRN #7 tablet 11/12/22 - Allergies Allergies/Adverse Reactions: Allergies Allergy/AdvReac Type Severity Reaction Status Date / Time No Known Drug Allergies Allergy Verified 11/28/21 21:02 - Social History Does the pt smoke?: Yes Smoking Status: Current every day smoker Does the pt drink ETOH?: No Does the pt have substance abuse?: No - Immunizations Immunizations are current?: No PD ED PE NORMAL - Vitals Vital signs reviewed: Yes - General General: Alert and oriented X 3, No acute distress - Abdomen Abdomen: Normal bowel sounds, Soft, Non tender - Neuro Neuro: Alert and oriented X 3, Normal speech - Psych Psych: Normal mood, Normal affect Results - Vitals Vitals: Vital Signs - 24 hr 11/12/22 10:59 Temperature 36.6 C Heart Rate 77 Respiratory 20 Rate Blood Pressure 124/80 O2 Saturation 96 Oxygen O2 Source Room air - Labs Labs: Laboratory Tests 11/12/22 11/12/22 11/12/22 11:04 11:26 11:26 WBC 10.7 RBC 5.02 Hgb 16.2 H Hct 49.3 H MCV 98.2 MCH 32.3 H MCHC 32.9 RDW 13.8 Plt Count 305 MPV 9.4 Neut # (Auto) 7.4 H Lymph # (Auto) 2.4 [place] # (Auto) 0.8 Eos # (Auto) 0.1 Baso # (Auto) 0.1 Absolute Nucleated RBC 0.00 Nucleated RBC % 0.0 Sodium 139 Potassium 4.2 Chloride 103 Carbon Dioxide 27 Anion Gap 9.0 BUN 10 Creatinine 0.7 Estimated GFR (MDRD) 83 L Glucose 130 H Calcium 9.5 Total Bilirubin 0.5 AST 22 ALT 21 Alkaline Phosphatase 87 Total Protein 7.4 Albumin 4.4 Globulin 3.0 Albumin/Globulin Ratio 1.5 Lipase 32 Urine Color DARK YELLOW Urine Clarity CLEAR Urine pH 5.5 Ur Specific [place] >=1.030 H Urine Protein NEGATIVE Urine Glucose (UA) NEGATIVE Urine Ketones NEGATIVE Urine Occult Blood TRACE-INTA Urine Nitrite NEGATIVE Urine Bilirubin NEGATIVE Urine Urobilinogen 0.2 (NORMAL) Ur Leukocyte Esterase NEGATIVE Ur Microscopic Review NOT INDICATED Urine Culture Comments NOT INDICATED PD Medical Decision Making - ED course ED course: CBC reviewed with elevated H&H, this may be from her underlying C OPD. CMP reviewed and normal save mild hyperglycemia 130. Urinalysis reviewed and unremarkable. 67-year-old woman with abdominal pain reminiscent of prior diverticulitis without tenderness or significant leukocytosis. I think imaging can be safely deferred at this time unless not improving as expected. Departure - Departure Disposition: 01 Home, Self Care Clinical Impression: Diverticulitis of gastrointestinal tract Condition: Good Record reviewed to determine appropriate education?: Yes Instructions: ED Diverticulitis, ED Diet Clear Liquid, Diet Low Residue Prescriptions: Amox/Clav 875/125 [Augmentin] 1 each PO Q12H #20 tablet HYDROcod/ACETAM 5/325 [[place] 5/325] 1 - 2 tab PO Q6H PRN #7 tablet PRN Reason: Pain Comments: Clear liquid diet for the next 24 hours, then a low residue diet for another 2 days. Return if worse or if not improving over the next 24 to 48 hours. Follow-up with your primary care physician this week regardless for recheck, also you will need a follow-up colonoscopy in around 8 weeks. I sent your prescriptions electronically to [facility] in [place]. I am prescribing a short course of narcotic pain medication for you. These are potentially dangerous and addictive medications that should be used carefully. These medications may constipate you. Take an iiqn-pnm-fixfeoi stool softener (docusate) twice daily with plenty of water while taking these medications. If you go 24 hours without a bowel movement, take wili-[id number] miralax, per package instructions. Do not drink or drive while taking these medications. If you received narcotic or sedating medications while in the emergency department, do not drive for 24 hours. Store this medication in a safe, secure place and out of reach of children. It is a violation of federal law to give or sell this medication to another person or to use in a manner other than prescribed. The ED will not refill narcotic prescriptions, including prescriptions lost or stolen. To dispose of unwanted medications: 1. [facility] [address] in [place] has a medication drop box. They accept prescription medications (in pill form) Saturday through Saturday 9:00 a.m. to 5:00 p.m. 2. The [facility] [employer] accepts prescription medications (in pill form only) for disposal year round. Call for more information. 3. Contact the [facility] for the next [facility] sponsored prescription drug collection event. , [phone], or [phone]; Note that many narcotic pain relievers also contain Tylenol/acetaminophen. Please ensure that your total dose of acetaminophen from all sources does not exceed 3 g (3000 mg) per day.
[2022-11-12 11:50] LABS: ALBUMIN 4.4 g/dL (3.2-5.5); ALBUMIN/GLOBULIN RATIO 1.5 (1.0-2.2); BILIRUBIN,TOTAL 0.5 mg/dL (0.2-1.0); CALCIUM 9.5 mg/dL (8.5-10.3); CREATININE 0.7 mg/dL (0.4-1.0); POTASSIUM 4.2 mmol/L (3.5-5.0); TOTAL PROTEIN 7.4 g/dL (6.7-8.2)
[2022-11-12] MEDS ORDERED: AMOX/CLAV 875 MG/125 MG TABLET PO STA (11:55)
[2022-11-12 12:11] VITALS: BP 182/98
== END 2022-11-12 12:07 | disposition home or self-care (01) ==
LOC: ED 10:43
DX: K57.92 Diverticulitis of intestine, part unspecified, without perforation or abscess without bleeding (principal); J44.9 Chronic obstructive pulmonary disease, unspecified; F17.200 Nicotine dependence, unspecified, uncomplicated; Z79.899 Other long term (current) drug therapy
CPT/HCPCS: 36415; 80053; 81003; 83690; 85025; 96374; 99283; A9270; 81001; 87086

== ENCOUNTER 2023-05-09 09:35 | Outpatient (CLI) | payer MEDICARE, MEDICAID | END 2023-05-09 09:36 | disposition critical access hospital (66) | LOC: EMS 09:35 | DX: R10.32 Left lower quadrant pain (principal) | CPT/HCPCS: A0425; A0427 ==

== ENCOUNTER 2023-05-09 09:56 | Emergency (ER) | payer MEDICARE, MEDICAID ==
--- NOTE | 2023-05-09 10:02 | ED Physician Documentation ---
PD HPI ABD PAIN - Stated complaint Stated Complaint: LLQ AB PX - History obtained from History obtained from: Patient - History of Present Illness Timing - onset: How many days ago (6) Timing - duration: Days (6) Timing - details: Gradual onset, Still present (much wrose since last night with poor sleep due to pain.), Waxing and waning Quality: Cramping, Aching, Pain Location: LLQ Radiation: Lower back Improved by: Laying still. No: Eating, BM Worsened by: Moving, Palpation. No: Eating Associated symptoms: Nausea, Constipation (some decreased stool output), Loss of appetite. No: Fever, Vomiting, Diarrhea, Dysuria, Chest pain Similar symptoms before: Diagnosis (prior diverticulitis feeling similar.) Recently seen: Not recently seen Review of Systems Constitutional: denies: Fever, Chills Nose: denies: Rhinorrhea / runny nose, Congestion Throat: denies: Sore throat Cardiac: denies: Chest pain / pressure Respiratory: denies: Cough GI: reports: Abdominal Pain, Nausea, Constipation. 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 : None HEENT: None Psych: None Musculoskeletal: None Derm: None - Past Surgical History Past Surgical History: Yes General: Appendectomy /TRIMMER CLIMBER: Hysterectomy HEENT: Cataracts, Tonsil/Adenoidectomy - Present Medications Home Medications: Ambulatory Orders Medication Instructions Recorded Confirmed Albuterol Sulf [Ventolin Hfa 2 puffs INH PRN PRN 11/28/21 11/28/21 Inhaler] Azithromycin [Zithromax] 250 mg PO DAILY #4 tablet 11/30/21 Ipratropium [Atrovent] 1 puffs INH Q6H PRN #12.9 gm 11/30/21 predniSONE [Deltasone] 20 mg PO [id number] 5 Days #11 tab 11/30/21 Amox/Clav 875/125 [Augmentin] 1 each PO Q12H #20 tablet 11/12/22 HYDROcod/ACETAM 5/325 [[place] 5/325] 1 - 2 tab PO Q6H PRN #7 tablet 04/24/23 Ciprofloxacin HCl [Cipro] 500 mg PO BID #14 tablet 05/09/23 Docusate Sodium 100Mg Capsule 100 mg PO DAILY #7 cap 05/09/23 [Colace 100Mg Capsule] HYDROcod/ACETAM 5/325 [[place] 5/325] 1 ea PO Q6H PRN #12 tablet 05/09/23 Naproxen 500 mg PO BID 7 Days #15 tab 05/09/23 metroNIDAZOLE [Flagyl] 500 mg PO BID 7 Days #14 tablet 05/09/23 - Allergies Allergies/Adverse Reactions: Allergies Allergy/AdvReac Type Severity Reaction Status Date / Time No Known Drug Allergies Allergy Verified 05/09/23 10:52 - Social History Does the pt smoke?: Yes Smoking Status: Current every day smoker Does the pt drink ETOH?: No Does the pt have substance abuse?: No - Immunizations Immunizations are current?: No PD ED PE NORMAL - Vitals Vital signs reviewed: Yes - General General: Alert and oriented X 3, Well developed/nourished, Other (appears in pain, knees drawn up. ) - Cardiac Cardiac: RRR, No murmur - Respiratory Respiratory: Clear bilaterally - Abdomen Abdomen: Soft, Non distended, No organomegaly, Other (tender markedly with guarding and percussion tenderness, local rebound in LLQ area. ). No: Normal bowel sounds (decreased) - Female Female : Deferred - Rectal Rectal: Deferred - Back Back: No CVA TTP - Derm Derm: Normal color, Warm and dry, No rash - Extremities Extremities: Normal ROM s pain, No edema, No calf tenderness / cord - Neuro Neuro: Alert and oriented X 3, No motor deficit, Normal speech Results - Vitals Vitals: Vital Signs - 24 hr 05/09/23 05/09/23 05/09/23 10:02 12:22 13:04 Temperature 36.2 C L Heart Rate 93 84 84 Respiratory 18 18 Rate Blood Pressure 183/81 H 121/93 H 127/93 H O2 Saturation 97 99 99 05/09/23 13:34 Temperature Heart Rate 81 Respiratory 18 Rate Blood Pressure 119/90 H O2 Saturation 96 Oxygen O2 Source Room air - Labs Labs: Laboratory Tests 05/09/23 05/09/23 05/09/23 10:18 10:18 10:18 WBC 6.6 RBC 4.59 Hgb 14.8 Hct 45.5 MCV 99.1 H MCH 32.2 H MCHC 32.5 RDW 14.4 Plt Count 279 MPV 8.9 Neut # (Auto) 3.8 Lymph # (Auto) 2.0 [place] # (Auto) 0.7 Eos # (Auto) 0.1 Baso # (Auto) 0.0 Absolute Nucleated RBC 0.00 Nucleated RBC % 0.0 Sodium 139 Potassium 4.2 Chloride 106 Carbon Dioxide 26 Anion Gap 7.0 BUN 8 Creatinine 0.6 Estimated GFR (MDRD) 99 Glucose 114 H Lactic Acid 1.1 Calcium 9.2 Total Bilirubin 0.4 AST 16 ALT 16 Alkaline Phosphatase 91 Total Protein 6.4 Albumin 4.0 Globulin 2.4 Albumin/Globulin Ratio 1.7 Lipase 19 Urine Color Urine Clarity Urine pH Ur Specific [place] Urine Protein Urine Glucose (UA) Urine Ketones Urine Occult Blood Urine Nitrite Urine Bilirubin Urine Urobilinogen Ur Leukocyte Esterase Ur Microscopic Review Urine Culture Comments 05/09/23 10:55 WBC RBC Hgb Hct MCV MCH MCHC RDW Plt Count MPV Neut # (Auto) Lymph # (Auto) [place] # (Auto) Eos # (Auto) Baso # (Auto) Absolute Nucleated RBC Nucleated RBC % Sodium Potassium Chloride Carbon Dioxide Anion Gap BUN Creatinine Estimated GFR (MDRD) Glucose Lactic Acid Calcium Total Bilirubin AST ALT Alkaline Phosphatase Total Protein Albumin Globulin Albumin/Globulin Ratio Lipase Urine Color YELLOW Urine Clarity CLEAR Urine pH 6.0 Ur Specific [place] >=1.030 H Urine Protein NEGATIVE Urine Glucose (UA) NEGATIVE Urine Ketones NEGATIVE Urine Occult Blood TRACE-INTA Urine Nitrite NEGATIVE Urine Bilirubin NEGATIVE Urine Urobilinogen 0.2 (NORMAL) Ur Leukocyte Esterase NEGATIVE Ur Microscopic Review NOT INDICATED Urine Culture Comments NOT INDICATED - Rads (name of study) abd/pelvis CT Relevant Findings:: Prelim report reviewed (inflammatory changes in sigmoid area without perforation nor abscess. ), EMP independent interpretation of test PD Medical Decision Making - ED course Complexity details: reviewed results (diverticulitis sigmoid without complica ting factors. ), re-evaluated patient, considered differential (left lower abd pain for 6 days increasing. Pt feels c/w diverticulitis. This seems reasonable. She has such degree of pain today that concern is for complication (perf/abscess) shared discussion with pt to get CT scan. ), d/w patient Reviewed Lab Results: wbc 6.6 and lactate is normal range1.1. Does not appear spetic. Has infectious symptoms LLQ locally. Can treat with PO meds at home as initial trial and to return if worse/not improving. Drug Therapy Requiring Monitoring for Toxicity: given toradol and Dilaudid, ZOfran IV with good improvement in pain. Milder tenderness without peritoneal signs on recheck abd. She was allergic to some abx and did not know what. Ordered PO augmentin and she thought it was that med by the appearanc eof it. Can change to flagylll/cipro combo for the diverticullitis. Her pain has been 6 days and increased a lot since last night. I feel it is past the inflammatory stage and likely into the infectious as well so will treat with antibiotics too. Departure - Departure Disposition: 01 Home, Self Care Clinical Impression: Left lower quadrant abdominal pain, Acute diverticulitis Condition: Stable Record reviewed to determine appropriate education?: Yes Instructions: ED Diverticulitis Prescriptions: Ciprofloxacin HCl [Cipro] 500 mg PO BID #14 tablet Docusate Sodium 100Mg Capsule [Colace 100Mg Capsule] 100 mg PO DAILY #7 cap metroNIDAZOLE [Flagyl] 500 mg PO BID 7 Days #14 tablet Naproxen 500 mg PO BID 7 Days #15 tab HYDROcod/ACETAM 5/325 [[place] 5/325] 1 ea PO Q6H PRN #12 tablet PRN Reason: Pain Comments: Your CT scan shows uncomplicated diverticulitis which means no signs of perforation or abscess. There is localized swelling and inflammation. We will commonly treat this with anti-inflammatories as well as soft food and adequate hydration. You could use a mild stool softener daily if you become constipated. We will typically use and antibiotics as well. I wrote for combination of metronidazole and ciprofloxacin twice daily for a week. To this add Tylenol 500 to 650 mg every 4-6 hours if needed for pain or hydrocodone/acetaminophen if needed for worse pain. I sent prescriptions to your preferred pharmacy. I would anticipate improvement over the next few days and resolution by 5 or 6 days. Recheck if not improving at that time and return if worse. I am prescribing a short course of narcotic pain medication for you. These are potentially dangerous and addictive medications that should be used carefully. These medications may constipate you. Take an xhvk-fwx-rckufrw stool softener such as docusate twice daily with plenty of water while taking these medications. If you go 24 hours without a bowel movement, take srbn-vmn-mgkptdz MiraLAX, per package instructions. Do not drink or drive while taking these medications. If you received narcotic or sedating medications while in the emergency department do not drive for 24 hours. Store this medication in a safe, secure place and out of reach of children. It is a violation of federal law to give or sell this medication to another person or to use in a manner other than prescribed. The ED will not refill narcotic prescriptions, including prescriptions lost or stolen. You can dispose of unwanted medications at the [facility] office or at several pharmacies such as [facility]. Forms: PCP List Discharge Date/Time: 05/09/23 13:58
[2023-05-09] MEDS ORDERED: KETOROLAC 15 MG/ML VIAL IVP STA (10:04)
[2023-05-09] MEDS ORDERED: SODIUM CHLORIDE 0.9% 1,000 ML IV STA (10:06)
[2023-05-09 10:24] LABS: BASOPHILS % (AUTO) 0.6 %; EOSINOPHILS # (AUTO) 0.1 10^3/uL (0.0-0.7); EOSINOPHILS % (AUTO) 1.2 %; HCT - HEMATOCRIT 45.5 % (37.0-47.0); HGB - HEMOGLOBIN 14.8 g/dL (12.0-16.0); LYMPHOCYTES % (AUTO) 30.3 %; MEAN CORPUSCULAR HEMOGLOBIN 32.2 pg (27.0-31.0); MEAN CORPUSCULAR HGB CONC 32.5 g/dL (32.0-36.0); MEAN CORPUSCULAR VOLUME 99.1 fL (81.0-99.0); MEAN PLATELET VOLUME 8.9 fL (7.9-10.8); MONOCYTES # (AUTO) 0.7 10^3/uL (0.0-1.0); MONOCYTES % (AUTO) 10.4 %; NEUTROPHILS # (AUTO) 3.8 10^3/uL (1.5-6.6); NEUTROPHILS % (AUTO) 57.2 %; PLT - PLATELET COUNT 279 10^3/uL (130-450); RED BLOOD COUNT 4.59 10^6/uL (4.20-5.40); RED CELL DISTRIBUTION WIDTH 14.4 % (12.0-15.0); WHITE BLOOD COUNT 6.6 x10^3/uL (4.8-10.8)
[2023-05-09 10:47] LABS: ALBUMIN/GLOBULIN RATIO 1.7 (1.0-2.2); BILIRUBIN,TOTAL 0.4 mg/dL (0.2-1.0); CALCIUM 9.2 mg/dL (8.5-10.3); CREATININE 0.6 mg/dL (0.6-1.3); POTASSIUM 4.2 mmol/L (3.5-4.5); TOTAL PROTEIN 6.4 g/dL (6.4-8.9)
[2023-05-09 11:03] LABS: GLUCOSE, URINE (UA) NEGATIVE (NEGATIVE); KETONES,URINE (UA) NEGATIVE (NEGATIVE); LEUKOCYTE ESTERASE, URINE NEGATIVE (NEGATIVE); NITRITE,URINE NEGATIVE (NEGATIVE); OCCULT BLOOD,URINE TRACE-INTA (NEGATIVE); PROTEIN,URINE NEGATIVE (NEGATIVE); UROBILINOGEN,URINE 0.2 (NORMAL) E.U./dL (NORMAL)
[2023-05-09 11:09] LABS: CLARITY,URINE CLEAR (CLEAR)
[2023-05-09 11:13] LABS: BILIRUBIN,URINE NEGATIVE (NEGATIVE); ICTOTEST,URINE NEGATIVE
[2023-05-09] MEDS ORDERED: iohexoL-300 100 ML VIAL IVP ONE (11:39)
--- NOTE | 2023-05-09 11:52 | CT Report ---
PROCEDURE: ABDOMEN/PELVIS W INDICATIONS: LLQ Abdominal pain, diverticulitis suspected CONTRAST: Omni 300 100ml TECHNIQUE: After the administration of IV contrast, 5 mm thick sections acquired from the diaphragms to the symp hysis. 5 mm thick coronal and sagittal reformats were acquired. For radiation dose reduction, the f ollowing was used: automated exposure control, adjustment of mA and/or kV according to patient size. COMPARISON: None. FINDINGS: Image quality: Excellent. Lung bases and heart: Unremarkable. Liver: No solid mass. Hepatic steatosis is seen. Gallbladder and biliary tree: No radiopaque stones or wall thickening. No biliary dilation. Spleen: No splenomegaly. Pancreas: No pancreatic ductal dilation. Adrenals: No adrenal nodule. Kidneys and ureters: No hydronephrosis. No renal cystic lesion which requires follow up. No solid mas s. Bowel and peritoneum: There is no bowel obstruction. No gastric or small bowel wall thickening. Sigmo id diverticulosis is seen. Significant wall thickening and pericolonic fat stranding with narrowing o f the lumen involving proximal to mid sigmoid colon in the left lower quadrant is noted. No extralumi nal air. No abscess collection. No or peritoneal free fluid or free air. Lymph nodes: No central or retroperitoneal adenopathy. Vessels: No infrarenal aortic aneurysm. Moderate atherosclerotic calcifications in the abdominal aort a is seen. PELVIS Reproductive organs: Unremarkable. Bladder: No abnormal wall thickening, accounting for underdistension. Pelvic lymph nodes: No pelvic adenopathy by size criteria. Bones: No aggressive osseous abnormality. Other: No significant ventral or inguinal hernia. Oval hypodense structure within right posterior lat eral subcutaneous soft tissue of abdominal wall at the level of right kidney is seen and measures 2.5 x 2 cm in size and 2.5 Hounsfield units in density. IMPRESSION: 1. Finding is consistent with acute diverticulitis involving proximal to mid sigmoid colon in left lo wer quadrant. No signs of perforation. No abscess collection. 2. No bowel obstruction. No other area of abnormal bowel wall thickening. No free fluid or free air. 3. Hepatic steatosis. 4. Incidentally noted of fluid density oval structure in posterior lateral lower abdominal wall soft tissues likely represent benign process such as a sebaceous cyst. Femoral Reviewed by: Rojelio Simental MD on 05/09/2023 11:51 AM PDT Approved by: Rojelio Simental MD on 05/09/2023 11:51 AM [facility] Station ID: [id number]
[2023-05-09] MEDS ORDERED: HYDROmorphone 0.5 MG/0.5 ML SYRINGE IVP STA (12:45)
[2023-05-09] MEDS: AMOX/CLAV 875 MG/125 MG TABLET PO STA ×2 (12:50→12:57)
[2023-05-09] MEDS ORDERED: CIPROFLOXACIN 250 MG TABLET PO STA (12:55)
[2023-05-09] MEDS ORDERED: metroNIDAZOLE 250 MG TABLET PO STA (12:55)
[2023-05-09 13:43] VITALS: BP 119/90; O2SAT 96
== END 2023-05-09 13:58 | disposition home or self-care (01) ==
LOC: EDUNIT# → ED 09:56
DX: K57.32 Diverticulitis of large intestine without perforation or abscess without bleeding (principal); Z88.1 Allergy status to other antibiotic agents; F17.200 Nicotine dependence, unspecified, uncomplicated
CPT/HCPCS: 36415; 74177; 80053; 81003; 83605; 83690; 85025; 96374; 96375; 99284; A9270; J1170; Q9967; 81001; 87086